=== PATIENT | female | born 1950 | race Caucasian/White ===

== ENCOUNTER 2020-05-26 19:27 | Emergency (ER) | payer MEDICARE ==
[2020-05-26] MEDS ORDERED: METHYLPREDNISOLONE SOD SUCC 125MG/2ML VIAL ONE (20:15)
[2020-05-26 20:20] LABS: BASOPHILS % (AUTO) 0.3 % (0.0-5.0); EOSINOPHILS % (AUTO) 0.3 % (0.0-8.0); HEMATOCRIT 38.8 % (36-48); LYMPHOCYTES % (AUTO) 19.7 % (21.0-51.0); MEAN CORPUSCULAR HEMOGLOBIN 28.6 pg (27.0-33.0); MEAN CORPUSCULAR VOLUME 86.8 fL (79-99); NEUTROPHILS % (AUTO) 64.4 % (40.0-77.0); PLATELET COUNT (AUTO) 165 K/uL (130-400); RED BLOOD CELL COUNT(AUTO) 4.47 MIL/uL (4.00-5.50); RED CELL DISTRIBUTION WIDTH 13.5 % (11.0-15.5); WHITE BLOOD COUNT (AUTO) 6.2 K/uL (4.8-10.8)
[2020-05-26 20:34] LABS: POTASSIUM 3.6 mmol/L (3.5-5.1)
[2020-05-26 20:38] LABS: BILIRUBIN,TOTAL 0.6 mg/dL (0.2-1.0)
[2020-05-26 20:39] LABS: ALBUMIN 3.3 g/dL (3.5-5.0); TOTAL PROTEIN, SERUM 6.9 g/dL (6.0-8.3)
[2020-05-26 20:45] LABS: B-TYPE NATRIURETIC PEPTIDE < 5 pg/mL (0-100)
[2020-05-26] MEDS ORDERED: ALBUTEROL INHALER 90MCG/INH IH ONE (21:43)
[2020-05-26] MEDS ORDERED: SODIUM CHLORIDE 0.9% 500ML 500 ML IV ONE (21:43)
== END 2020-05-27 00:47 | disposition home or self-care (01) ==
LOC: EDH 19:27
DX: J44.1 Chronic obstructive pulmonary disease with (acute) exacerbation (principal); R19.7 Diarrhea, unspecified; E78.00 Pure hypercholesterolemia, unspecified; Z87.891 Personal history of nicotine dependence
CPT/HCPCS: 36415; 71045; 71275; 80053; 82550; 83880; 84484; 85025; 85378; 87804 ×2; 93005; 96361; 96374; 99285; J2930; J7040

== ENCOUNTER 2021-05-30 18:50 | Observation (INO) | payer MEDICARE ==
[~2021-05-30] VITALS: Ht 154.9 cm; Wt 65.3 kg
[2021-05-30 18:54] VITALS: BP 153/78
[2021-05-30] MEDS ORDERED: ONDANSETRON 4MG INJ IVP ONE (20:00)
[2021-05-30] MEDS ORDERED: 0.9%NACL 1000ML 1,000 ML IV ONE ×2 (20:00→22:30)
[2021-05-30] MEDS ORDERED: GLUCAGON 1MG KIT 1 MG ML IV ONE ×2 (20:00→21:30)
[2021-05-30 20:07] VITALS: BP 183/68
[2021-05-30 20:18] LABS: BASOPHILS % (AUTO) 0.5 % (0.0-5.0); EOSINOPHILS % (AUTO) 1.1 % (0.0-8.0); HEMATOCRIT 42.6 % (36-48); LYMPHOCYTES % (AUTO) 19.9 % (21.0-51.0); MEAN CORPUSCULAR HGB CONC 32.6 g/dL (32.0-36.0); MEAN CORPUSCULAR VOLUME 88.8 fL (79-99); MONOCYTES % (AUTO) 6.9 % (3.0-13.0); NEUTROPHILS % (AUTO) 71.3 % (40.0-77.0); PLATELET COUNT (AUTO) 206 K/uL (130-400); RED CELL DISTRIBUTION WIDTH 13.4 % (11.0-15.5); WHITE BLOOD COUNT (AUTO) 11.3 K/uL (4.8-10.8)
[2021-05-30 20:30] LABS: POTASSIUM 4.6 mmol/L (3.5-5.1)
[2021-05-30 20:35] LABS: ALBUMIN 4.3 g/dL (3.5-5.0); BILIRUBIN,TOTAL 0.7 mg/dL (0.2-1.0); TOTAL PROTEIN, SERUM 7.7 g/dL (6.0-8.3)
[2021-05-30 20:42] LABS: INR 1.04 (0.85-1.15); PROTHROMBIN TIME 11.3 SEC (9.6-11.6)
[2021-05-30] MEDS ORDERED: GLUCAGON 1MG KIT 1 MG ML ONE (21:19)
[2021-05-30] MEDS ORDERED: METOCLOPRAMIDE 10 MG/2 ML VIAL IVP ONE (22:30)
[2021-05-30 22:50] VITALS: BP 151/59
[2021-05-30] MEDS ORDERED: GREE250C PO (23:01)
[2021-05-30] MEDS ORDERED: AMIT50TA3 PO (23:01)
[2021-05-30] MEDS ORDERED: BLAC540C4 PO (23:01)
[2021-05-30] MEDS ORDERED: MULT-503 PO (23:01)
[2021-05-30] MEDS ORDERED: MONT10TA32 PO (23:01)
[2021-05-30] MEDS ORDERED: ASPI-1197 PO (23:01)
[2021-05-30] MEDS ORDERED: CHOL200041 PO (23:01)
[2021-05-30] MEDS ORDERED: ATOR20TA65 PO (23:01)
[2021-05-30] MEDS ORDERED: 0.9%NACL 1000ML 1,000 ML IV SCH (23:30)
[2021-05-30] MEDS ORDERED: ONDANSETRON 4MG INJ IV PRN (23:30)
[2021-05-30] MEDS ORDERED: IPRATROPIUM/ALBUTEROL SULFATE 3 ML SOLUTION IH PRN (23:30)
[2021-05-31] VITALS (16 sets, daily range): BP systolic 118–160; BP diastolic 47–78
[2021-05-31] MEDS ORDERED: ROCURONIUM 10MG/1ML SYR 10 MG/ML ML ONE (06:49)
[2021-05-31] MEDS ORDERED: SUCCINYLCHOLINE 200MG/10ML SYR ONE (06:49)
[2021-05-31] MEDS ORDERED: PROPOFOL 10 MG/ML 20ML VIAL IV ONE (06:49)
[2021-05-31] MEDS ORDERED: FENTANYL CITRATE PF 50 MCG/1 ML 2ML VIAL ONE (06:49)
[2021-05-31] MEDS ORDERED: LIDOCAINE PF 100MG/5ML (2%) SYRINGE 5ML ONE (06:49)
[2021-05-31 06:56] LABS: BASOPHILS % (AUTO) 0.5 % (0.0-5.0); EOSINOPHILS % (AUTO) 1.1 % (0.0-8.0); HEMATOCRIT 38.6 % (36-48); LYMPHOCYTES % (AUTO) 18.3 % (21.0-51.0); MEAN CORPUSCULAR HEMOGLOBIN 28.9 pg (27.0-33.0); MEAN CORPUSCULAR HGB CONC 32.4 g/dL (32.0-36.0); MEAN CORPUSCULAR VOLUME 89.1 fL (79-99); MONOCYTES % (AUTO) 8.3 % (3.0-13.0); NEUTROPHILS % (AUTO) 71.3 % (40.0-77.0); PLATELET COUNT (AUTO) 183 K/uL (130-400); RED BLOOD CELL COUNT(AUTO) 4.33 MIL/uL (4.00-5.50); RED CELL DISTRIBUTION WIDTH 13.6 % (11.0-15.5); WHITE BLOOD COUNT (AUTO) 10.1 K/uL (4.8-10.8)
[2021-05-31 07:05] LABS: INR 1.05 (0.85-1.15); PROTHROMBIN TIME 11.4 SEC (9.6-11.6)
[2021-05-31 07:06] LABS: PARTIAL THROMBOPLASTIN TIME 26.4 SEC (26.3-35.5)
[2021-05-31 07:12] LABS: CREATININE 0.9 mg/dL (0.5-1.5); MAGNESIUM 2.2 mg/dL (1.80-2.40); PHOSPHORUS 3.5 mg/dL (2.5-4.9); POTASSIUM 3.6 mmol/L (3.5-5.1)
[2021-05-31] MEDS ORDERED: FAMOTIDINE 20MG VIAL IV SCH (09:00)
[2021-05-31] MEDS ORDERED: PANTOPRAZOLE 40 MG/VIAL IVP SCH (09:00)
[2021-05-31] MEDS ORDERED: OMEP40CA21 PO (16:22)
== END 2021-05-31 17:45 | disposition home or self-care (01) ==
LOC: EDH 18:50 → EDHIP 23:28
PROVIDERS: ADMIT Internal Medicine; ATTEND Internal Medicine
DX: T18.128A Food in esophagus causing other injury, initial encounter (principal); E86.9 Volume depletion, unspecified; K11.7 Disturbances of salivary secretion; K21.00 Gastro-esophageal reflux disease with esophagitis, without bleeding; J44.9 Chronic obstructive pulmonary disease, unspecified; E78.5 Hyperlipidemia, unspecified; E78.00 Pure hypercholesterolemia, unspecified; Z79.82 Long term (current) use of aspirin; Z90.710 Acquired absence of both cervix and uterus; Z90.49 Acquired absence of other specified parts of digestive tract; Z79.899 Other long term (current) drug therapy; Z87.891 Personal history of nicotine dependence; Z99.81 Dependence on supplemental oxygen; Z98.890 Other specified postprocedural states; X58.XXXA Exposure to other specified factors, initial encounter; Y93.89 Activity, other specified; Y92.89 Other specified places as the place of occurrence of the external cause; Y99.8 Other external cause status
CPT/HCPCS: 36415 ×2; 43247; 71045; 80048; 80053; 83690; 83735; 84100; 84484; 85025 ×2; 85610 ×2; 85730; 93005; 96361 ×2; 96374; 96375 ×2; 96376; 99285; A4215; A4657; C9113; G0378 ×16; J0330; J1610 ×2; J2001; J2405; J2704; J2765; J3010; J3490

== ENCOUNTER 2021-06-22 05:36 | Day surgery (SDC) | payer MEDICARE ==
[~2021-06-22] VITALS: Ht 154.9 cm; Wt 61.7 kg
[~2021-06-22 05:36] MED LIST: AMIT50TA3 PO; ATOR20TA65 PO; BLAC540C4 PO; CHOL200041 PO; GREE250C PO; MONT10TA32 PO; MULT-503 PO; OMEP40CA21 PO
[2021-06-22] MEDS ORDERED: 0.9%NACL 1000ML 1,000 ML IV ONE (06:22)
[2021-06-22 06:39] VITALS: BP 118/67
[2021-06-22] MEDS ORDERED: LIDOCAINE HCL 1% 20 ML VIAL ONE (06:49)
[2021-06-22] MEDS ORDERED: PROPOFOL 10 MG/ML 20ML VIAL IV ONE ×2 (06:49→08:08)
[2021-06-22] MEDS ORDERED: GLYCOPYRROLATE 1 MG/5 ML SYRINGE ONE (06:50)
[2021-06-22] MEDS ORDERED: PHENYLEPHRINE HCL 10 MG/ML 1ML VIAL IV ONE (06:51)
[2021-06-22] MEDS ORDERED: IPRA4AER IH (06:57)
[2021-06-22 08:16] VITALS: BP 91/30
[2021-06-22 08:22] VITALS: BP 98/34
[2021-06-22 08:27] VITALS: BP 94/43
[2021-06-22 08:35] VITALS: BP 124/55
[2021-06-22 08:40] VITALS: BP 124/60
== END 2021-06-22 08:50 | disposition home or self-care (01) ==
LOC: ENDO 05:36 → DAH 05:36 → ENDO 08:50
PROVIDERS: ATTEND Internal Medicine Gastroenterology
DX: K22.2 Esophageal obstruction (principal); Z20.822 Contact with and (suspected) exposure to COVID-19; K21.00 Gastro-esophageal reflux disease with esophagitis, without bleeding; K44.9 Diaphragmatic hernia without obstruction or gangrene; K29.70 Gastritis, unspecified, without bleeding; K59.04 Chronic idiopathic constipation; J44.9 Chronic obstructive pulmonary disease, unspecified; E78.5 Hyperlipidemia, unspecified; F41.9 Anxiety disorder, unspecified; F32.9 Major depressive disorder, single episode, unspecified; M19.90 Unspecified osteoarthritis, unspecified site; Z90.49 Acquired absence of other specified parts of digestive tract; Z90.710 Acquired absence of both cervix and uterus; Z87.891 Personal history of nicotine dependence; Z86.010 Personal history of colon polyps; Z88.0 Allergy status to penicillin; Z79.82 Long term (current) use of aspirin; Z79.899 Other long term (current) drug therapy; Z98.890 Other specified postprocedural states
CPT/HCPCS: 43239; 43249; 82948 ×2; 87426; 88305; 88342; 93005; A4215 ×2; A4221; A4223; A4606; A4620; A4657 ×2; A4663; C1726; J2370; J2704 ×2; J3490; J7030

== ENCOUNTER 2022-09-24 16:32 | Emergency (ER) | payer OTHER, MEDICARE ==
[~2022-09-24] VITALS: Ht 152.4 cm; Wt 68.0 kg
[~2022-09-24 16:32] MED LIST changes: +IPRA4AER IH; +MONT-39 PO; -MONT10TA32 PO
[2022-09-24 17:39] LABS: BASOPHILS % (AUTO) 0.5 % (0.0-5.0); EOSINOPHILS % (AUTO) 1.1 % (0.0-8.0); HEMATOCRIT 39.2 % (36-48); LYMPHOCYTES % (AUTO) 17.2 % (21.0-51.0); MEAN CORPUSCULAR HEMOGLOBIN 27.1 pg (27.0-33.0); MEAN CORPUSCULAR HGB CONC 32.1 g/dL (32.0-36.0); MEAN CORPUSCULAR VOLUME 84.3 fL (79-99); MONOCYTES % (AUTO) 7.9 % (3.0-13.0); NEUTROPHILS % (AUTO) 72.8 % (40.0-77.0); PLATELET COUNT (AUTO) 199 K/uL (130-400); RED BLOOD CELL COUNT(AUTO) 4.65 MIL/uL (4.00-5.50); RED CELL DISTRIBUTION WIDTH 14.7 % (11.0-15.5); WHITE BLOOD COUNT (AUTO) 10.9 K/uL (4.8-10.8)
[2022-09-24 17:55] LABS: CREATININE 0.9 mg/dL (0.5-1.5)
[2022-09-24 18:00] LABS: ALBUMIN 3.7 g/dL (3.5-5.0); TOTAL PROTEIN, SERUM 7.3 g/dL (6.0-8.3)
[2022-09-24] MEDS ORDERED: IOHEXOL 350 MG/ML 100ML INFUS..BTL IV ONE (18:19)
[2022-09-24 19:12] LABS: APPEARANCE,URINE CLEAR (CLEAR); BILIRUBIN,URINE NEGATIVE (NEGATIVE); COLOR,URINE COLORLESS (YELLOW); GLUCOSE, URINE (UA) NEGATIVE (NEGATIVE); KETONES,URINE NEGATIVE (NEGATIVE); LEUKOCYTE ESTERASE ,URINE NEGATIVE Leu/uL (NEGATIVE); NITRATE,URINE NEGATIVE (NEGATIVE); OCCULT BLOOD,URINE NEGATIVE (NEGATIVE); PH,URINE 7.5 (5.0-8.0); PROTEIN,URINE NEGATIVE (NEGATIVE); UROBILINOGEN,URINE 0.2 mg/dL (0.2-1.0)
[2022-09-24 19:13] LABS: WBC,URINE 0-1 /HPF (0-1)
[2022-09-24 19:25] VITALS: BP 132/66
== END 2022-09-24 19:54 | disposition home or self-care (01) ==
LOC: EDH 16:32
DX: R10.9 Unspecified abdominal pain (principal); J44.9 Chronic obstructive pulmonary disease, unspecified; E78.00 Pure hypercholesterolemia, unspecified; G47.00 Insomnia, unspecified; Z88.0 Allergy status to penicillin; W01.0XXA Fall on same level from slipping, tripping and stumbling without subsequent striking against object, initial encounter; Y93.89 Activity, other specified; Y92.89 Other specified places as the place of occurrence of the external cause; Y99.8 Other external cause status
CPT/HCPCS: 99285; 70450; 71045; 84484; 80053; 85025; 83605; 81001; 36415; 74177; 93005; Q9967

== ENCOUNTER 2025-11-05 15:14 | Emergency (ER) | payer OTHER, MEDICARE ==
[~2025-11-05] VITALS: Ht 157.5 cm; Wt 64.4 kg
[~2025-11-05 15:14] MED LIST changes: +AMIT50TA14 PO; -AMIT50TA3 PO; -GREE250C PO; -IPRA4AER IH
--- NOTE | 2025-11-05 15:23 | ERN ---
ED Note History of Present Illness Stated Complaint: LT SHOULDER PAIN Chief Complaint: Shoulder Injury/Pain Time Seen by MD: 15:19 Time Seen by Midlevel: 15:20 Dictation: 75-year-old female presents to the emergency department due to reported having pain to the left shoulder due to having lifted her oxygen intact. She states that she was in the parking lot of a store when she attempted to lift her oxygen intact and felt a sharp pain. The patient states that the pain is primarily with movement. However, she states that she does have some pressure type of sensation without movement which she rates as a 2/10. Currently, she denies having any numbness or tingling to the left arm. The patient presents with a normal neurovascular examination. Allergies: Coded Allergies: Penicillins (Unverified Allergy, Unknown, 06/22/21) Emergency Care MAGAZINE JOURNALIST: None Home Meds Reported Medications Amitriptyline HCl (Amitriptyline HCl) 50 Mg Tablet, 50 MG PO HS, TAB 06/21/21 Atorvastatin Calcium (Atorvastatin Calcium) 20 Mg Tablet, 20 MG PO HS, TAB 06/21/21 Omeprazole (Omeprazole) 40 Mg Capsule.dr, 40 MG PO HS, CAP 06/21/21 Black Cohosh (Black Cohosh) 540 Mg Capsule, 540 MG PO DAILY, CAP 05/30/21 Cholecalciferol (Vitamin D3) (D3 Dots) 50 Mcg Tablet, 25 MCG PO DAILY, TAB 05/30/21 Multivitamin with Minerals (One Daily Complete) 1 Each Tablet, 1 EACH PO DAILY, TAB 05/30/21 Montelukast Sodium (Montelukast Sodium) 10 Mg Tablet, 10 MG PO HS, TAB 05/30/21 Past Medical History Past Medical History: COPD, Depression, GERD, High Cholesterol, IBS Additional Past Medical Hx: INSOMNIA, ABD HERNIA, ACID REFLUX, IBS Surgical History: Hysterectomy PSYCH History: no pertinent psych hx Social History: Negative RN Note Reviewed/Agreed w/PFSH: Yes Review of System Dictation MS/Extremity: Left shoulder pain Initial Vital Sign VS Vital Signs Date Time Temp Pulse Resp B/P (MAP) Pulse Ox O2 Delivery O2 Flow Rate FiO2 11/05/25 15:17 98.4 110 16 160/87 96 Room Air 0 Physical Exam Dictation General: awake, alert, NAD Head/Face: Normocephalic, atraumatic Eyes: PERRL, EOMI ENT: Oral mucosa moist Neck: Trachea midline, supple Cardiovascular: RRR, no edema Respiratory: Symmetrical, non-labored Abdomen: Soft, non-tender, non-distended, no guarding. Skin: Warm, dry, good turgor, no rash MS/Extremity: Painful range of motion and tenderness to the left shoulder along with the posterior portion. Normal neurovascular examination. Neuro: COAx4, GCS 15, steady gait, Psych: Normal behavior, mood, and affect normal Results (Laboratory/Radiology) X-RAY Comment: Three-view x-ray of the left shoulder with no cortical anomalies or deformities as interpreted by me. ED Course ED Course Orders Procedure Category Date Status Time Shoulder Comp 2+Vws Lt RAD 11/05/25 Taken 15:19 Acetaminophen 325 Tab PHA 11/05/25 Complete (Tylenol 325mg Tab 15:30 Current Medications Medications (Trade) Dose Ordered Sig/Kavya Route PRN Reason Start Time Stop Time Status Last Admin Dose Admin Acetaminophen (TYLenol 325MG TAB) 650 mg ONCE ONCE PO 11/05/25 15:30 11/05/25 15:31 DC 11/05/25 16:09 Vital Signs Date Time Temp Pulse Resp B/P (MAP) Pulse Ox O2 Delivery O2 Flow Rate FiO2 11/05/25 15:17 98.4 110 16 160/87 96 Room Air 0 Medical Decision Making MDM MDM: Differential diagnosis: Left shoulder sprain, left shoulder strain, subluxation of the left shoulder. Rationale: Tests considered and ordered secondary to shared decision making include: Previous outside records reviewed: Old ER visits. Risk of complication and/or morbidity or mortality of patient management: None Medications-Per medication reconciliation Need for hospitalization: Patient does not meet criteria for hospitalization. Need for emergency major/minor surgery: No There are no social concerns with this patient. Prescription drug management Prescriptions will include symptomatic care Patient's prior external medical records from other ER visits were reviewed by me as indicated. Prior testing and results from previous visits were reviewed. Prior tests were taken into account with medical decision making and resource utilization, independent historian/historians were used to obtain complete medical history. I independently interpreted the test that were performed, results were reviewed by me and considered findings on radiology if ordered. Medical management and examination interpretation discussions were had by me with other qualified healthcare professionals as indicated for the patient's care. DX & DISP Disposition: Discharge Departure Impression: Primary Impression: Sprain of left shoulder Condition: Stable Referrals: ARON ARCE MD (PCP) Time of Disposition: 16:54 CELINE WEBBER Nov 05, 2025 15:23
--- NOTE | 2025-11-05 15:44 | NUR ---
PT JUST NOW PLACED IN ED HALLWAY A
--- NOTE | 2025-11-05 17:19 | HMCIMG ---
EXAM: CR right Shoulder, 3 View. CLINICAL HISTORY: Pain COMPARISON: None provided. FINDINGS: BONES: Osteopenia No fracture JOINTS: Mild degenerative changes SOFT TISSUES: The soft tissues are unremarkable. IMPRESSION: 1. Mild degenerative changes 2. Osteopenia 3. No fracture /[place]
[2025-11-05 17:30] VITALS: BP 157/79; PULSE 99; RESP 16; TEMP 98.4; O2SAT 97
== END 2025-11-05 17:41 | disposition home or self-care (01) ==
LOC: EDH 15:14
DX: S43.402A Unspecified sprain of left shoulder joint, initial encounter (principal); E78.00 Pure hypercholesterolemia, unspecified; F32.A Depression, unspecified; J44.9 Chronic obstructive pulmonary disease, unspecified; Z88.0 Allergy status to penicillin; Z90.710 Acquired absence of both cervix and uterus; X50.0XXA Overexertion from strenuous movement or load, initial encounter; Y93.89 Activity, other specified; Y92.89 Other specified places as the place of occurrence of the external cause; Y99.8 Other external cause status
CPT/HCPCS: 73030; 99283